=== PATIENT | male | born 1985 | race Caucasian/White ===

== ENCOUNTER 2017-02-24 18:06 | Emergency (ER) | payer OTHER ==
[~2017-02-24] VITALS: Ht 182.9 cm; Wt 89.0 kg
[~2017-02-24 18:06] MED LIST: HYDR-3533 PO; METHO500 PO; PRED10PA PO
[2017-02-24 18:07] VITALS: BP 164/88; PULSE 98; RESP 20; TEMP 98.8; O2SAT 98
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
[2017-02-24] MEDS ORDERED: NAPR500T PO (18:22)
[2017-02-24] MEDS ORDERED: ROBA750T PO (18:22)
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
== END 2017-02-24 18:42 | disposition home or self-care (01) ==
LOC: NEPK 18:06
DX: M54.9 Dorsalgia, unspecified (principal); F17.200 Nicotine dependence, unspecified, uncomplicated; V49.40XA Driver injured in collision with unspecified motor vehicles in traffic accident, initial encounter
CPT/HCPCS: 99283